=== PATIENT | female | born 2000 | race Two or more races ===

== ENCOUNTER 2019-01-28 05:50 | Inpatient (IN) | payer SELFPAY ==
[~2019-01-28] VITALS: Ht 154.9 cm; Wt 69.4 kg
[2019-01-28 07:13] LABS: Basophils # (auto) 0.1 uL; Basophils % (auto) 0.9 % (0.0-2.0); Eosinophils # (auto) 0.1 uL; Eosinophils % (auto) 0.6 % (0.0-7.0); Hematocrit 44.4 % (36.0-46.0); Hemoglobin 15.1 g/dL (12.2-16.2); Lymphocytes # (auto) 1.9 uL; Lymphocytes % (auto) 20.2 % (10.0-50.0); Mean Corpuscular Hemoglobin 30.4 pg (28.0-32.0); Mean Corpuscular Volume 89.4 fL (80.0-100.0); Monocytes # (auto) 0.6 uL; Neutrophils # (auto) 6.9 uL; Neutrophils % (auto) 72.3 % (37.0-80.0); Nucleated Red Blood Cells % 0.1 %; Platelet Count (auto) 301 10^3/uL (140-450); Red Blood Cells 4.97 10^6/uL (4.0-5.20); Red Cell Distribution Width 12.7 % (11.8-14.3); White Blood Cell 9.6 10^3/uL (4.4-10.8)
[2019-01-28 07:25] LABS: INR 0.91 (0.9-1.15); Partial Thromboplastin Time 27.5 sec (23.78-33.04); Prothrombin Time 9.8 sec (9.27-12.13)
[2019-01-28 07:54] LABS: Potassium 3.5 mmol/L (3.5-5.1)
[2019-01-28 08:04] LABS: Albumin 3.4 g/dL (3.4-5.0); BUN/Creatinine Ratio 9.4; Bilirubin, Total 0.5 mg/dL (0.2-1.0); Calcium 8.8 mg/dL (8.5-10.1); Magnesium 2.5 mg/dL (1.6-2.6); Total Protein 7.9 g/dL (6.4-8.2)
[2019-01-28 09:29] LABS: Amphetamine Screen, Urine NEGATIVE (NEGATIVE); Barbiturate Scree,Urine NEGATIVE (NEGATIVE); Benzodiazephine Screen, Urine NEGATIVE (NEGATIVE); Cannabinoid Screen, Urine NEGATIVE (NEGATIVE); Cocaine Screen, Urine NEGATIVE (NEGATIVE); Opiate Scree,Urine NEGATIVE (NEGATIVE); Phencyclidine Screen, Urine NEGATIVE (NEGATIVE)
[2019-01-28] MEDS ORDERED: NITROGLYCERIN 0.4 MG SL TAB SL PRN (10:45)
[2019-01-28] MEDS ORDERED: MORPHINE SULF INJ 2 MG/ML SYRINGE 1ML IV PRN (10:45)
[2019-01-28] MEDS ORDERED: SODIUM CHLORIDE 0.9% 1,000 ML IV SCH (11:15)
[2019-01-28] MEDS ORDERED: ENALAPRIL MALEATE 2.5 MG TAB PO ONE (20:00)
[2019-01-28] MEDS ORDERED: LORazepam 0.5 MG TAB ONE (20:08)
[2019-01-28] MEDS: LORazepam 0.5 MG TAB PO PRN (20:26)
[2019-01-28] MEDS: METOPROLOL TARTRATE 25 MG TAB PO SCH (23:10)
[2019-01-29] MEDS: PANTOPRAZOLE 40 MG/10 ML VIAL IV SCH (09:42)
[2019-01-29] MEDS: ASPirin 81 mg TAB PO SCH (09:42)
[2019-01-29] MEDS: METOPROLOL TARTRATE 25 MG TAB PO SCH ×2 (09:43→21:27)
[2019-01-29] MEDS: ENALAPRIL MALEATE 2.5 MG TAB PO SCH (09:43)
[2019-01-29] MEDS ORDERED: ANGIOMAX 250 MG VIAL IV ONE (10:14)
[2019-01-29] MEDS ORDERED: ATROPINE SULFATE 1 MG/1 ML VIAL ONE (10:14)
[2019-01-29] MEDS ORDERED: fentaNYL CITRATE 100 MCG/2 ML VL ONE (10:15)
[2019-01-29] MEDS ORDERED: MIDAZOLAM HCL 1MG/1ML-2 ML VIAL ONE (10:15)
[2019-01-29] MEDS ORDERED: SODIUM CHL 0.9% 0 ML ONE (10:15)
[2019-01-29] MEDS ORDERED: EPINEPHrine HCL 1 MG/10 ML SYRG ONE (10:15)
[2019-01-29] MEDS ORDERED: IODIXANOL 320MG/ML 100ML BTL IV ONE (10:22)
[2019-01-29] MEDS ORDERED: LIDOCAINE 2%HCL (LOCAL ANESTH.) INJ 20ML MDV ONE (10:22)
[2019-01-29] MEDS ORDERED: IOHEXOL 350 MG/ML 100ML IJ ONE (10:31)
[2019-01-29] MEDS ORDERED: SODIUM CHLORIDE 0.9% 1,000 ML IV SCH (11:23)
--- NOTE | 2019-01-29 14:50 | NUR ---
Report received from Julia FIORE Wanigan Clerk. KATIE BILL brought to bed via wheelchair following Left Heart Catheterization, on athletic monitor and portable oxygen. Patient transferred to unit bed, connected to conveyor monitor #40. Patient tolerated room air O2 sat at 97%. With right groin Angioseal dry and intact. Catheterization site assessed for any bleeding, redness or swelling. Pedal pulses on affected leg assessed for positive tissue perfusion. Patient instructed on need to notify staff immediately if any pain, burning or wetness to site, and any lower back pain. Patient educated on new cardiac medications. All questions and concerns addressed, patient verbalized understanding of all education and instruction. See notes for any further.
[2019-01-29 15:00] VITALS: BP 96/53
--- NOTE | 2019-01-29 15:03 | NUR ---
chaperoned Dr. Maradiaga into pts room
[2019-01-29 16:55] LABS: Cholesterol 124 mg/dL (< 200); Triglycerides 87 mg/dL (< 150)
[2019-01-29 16:57] LABS: HDL Cholesterol 43 mg/dL (40-59); LDL Cholesterol 76 mg/dL (< 100)
[2019-01-29 17:22] VITALS: BP 96/53
--- NOTE | 2019-01-29 20:21 | NUR ---
HOSPITALIST PAGED PATIENT REPORTING HEADACHE RATED 3/10, NO PRN PAIN MEDICATION ORDERED.
[2019-01-29] MEDS ORDERED: ACETAMINOPHEN 325 MG TAB PO PRN (21:00)
[2019-01-29] MEDS: LORazepam 0.5 MG TAB PO PRN (21:26)
[2019-01-29 22:00] VITALS: BP 100/64
[2019-01-30 05:30] VITALS: BP 94/48
--- NOTE | 2019-01-30 06:51 | NUR ---
DRESSING REMAINS C/D/I TO RIGHT GROIN. NO S/S OF BLEEDING/HEMATOMA FORMATION NOTED. PEDAL PULSES/ SENSATION INTACT BILATERALLY.
[2019-01-30 09:02] VITALS: BP 108/71
[2019-01-30] MEDS: ENALAPRIL MALEATE 2.5 MG TAB PO SCH (10:00)
[2019-01-30] MEDS: PANTOPRAZOLE 40 MG/10 ML VIAL IV SCH (10:08)
[2019-01-30] MEDS: ASPirin 81 mg TAB PO SCH (10:09)
[2019-01-30] MEDS: METOPROLOL TARTRATE 25 MG TAB PO SCH ×2 (10:09→21:47)
--- NOTE | 2019-01-30 10:53 | NUR ---
chaperoned Dr. Maradiaga into pts room
--- NOTE | 2019-01-30 11:00 | NUR ---
Patient is for discharge. IV removed on the left antecubital area, pressure dressing applied.
[2019-01-30 12:18] VITALS: BP 98/64
--- NOTE | 2019-01-30 13:15 | NUR ---
Patient complained of tightness on the right groin area site of the LHC. Swelling on the side noted but no bleeding, dressing dry and intact. Paged Dr. Felix. Waiting for call back.
[2019-01-30 13:34] VITALS: BP 108/71
--- NOTE | 2019-01-30 13:45 | NUR ---
Dr. Felix returned call, instructions received. Apply manual pressure for 30miutes on the right groin, remained on bedrest for the next 4 hours and cancelled the discharge today. Dr. Hiren last tomlin. Elida FIORE from laborer drying department will come up and check on the patient.
--- NOTE | 2019-01-30 14:00 | NUR ---
Started applying manual pressure on the right groin area. Positioned patient flat on bed. Will continue care.
--- NOTE | 2019-01-30 14:30 | NUR ---
Manual pressure administration done. Elida FIORE Gas Main And Line Fitter came in, patient is advised. Safeguard applied on the right groin area inflated with 40ml of air to remain for 3 hours. Instructions received to start deflating 5ml of air after 3 hours, do it repeatedly every after 15minutes. Once all air is deflated, do not remove the safeguard. Keep the safeguard in place until tomorrow. Observe for S/S of bleeding and hematoma.
[2019-01-30 16:46] VITALS: BP 110/62
--- NOTE | 2019-01-30 17:30 | NUR ---
Deflated 5ml of air from safeguard. No bleeding noted. No complaints of pain.
--- NOTE | 2019-01-30 18:00 | NUR ---
Deflated 5ml of air from safeguard. No complaints of pain or tightness on the right groin.
--- NOTE | 2019-01-30 18:30 | NUR ---
Deflated 5ml of air from safeguard, no further swelling noted. No bleeding, no complains of pain or tightness on the site.
--- NOTE | 2019-01-30 19:01 | NUR ---
IV insertion IV access obtained, via clean sterile technique by inserting 22 gauge catheter at left antecubital after on attempt. IV secured properly. No trauma to site. Patient tolerated well.
--- NOTE | 2019-01-30 19:02 | NUR ---
Deflated 5ml of air from safeguard. Right groin looks good. No further swelling, bleeding, pain and tightness on the site.
--- NOTE | 2019-01-30 19:03 | NUR ---
Gave reports to manufacturing shift supervisor RN that total of 20ml of air deflated on the safeguard. Safeguards to remain in place even if all the air is out. Possible removal of the safeguard tomorrow.
--- NOTE | 2019-01-30 20:15 | NUR ---
A&Ox4, resting in bed. Currently with no pain level. Deflated 5 ml of air from safeguard. Right groin asymptomatic. Pedal pulses palpated bilaterally. No further swelling, bleeding, pain, tightness and warmth on the side, Bed locked in lower position, side rails up x2, call light within reach. Skin is intact, no open wounds. Will continue to round.
--- NOTE | 2019-01-30 20:55 | NUR ---
Deflated 5 ml of air from safeguard. Right groin asymptomatic. Pedal pulses palpated bilaterally. No further swelling, bleeding, pain, tightness and warmth on the side
--- NOTE | 2019-01-30 21:25 | NUR ---
Deflated 5 ml of air from safeguard. Right groin asymptomatic. Pedal pulses palpated bilaterally. No further swelling, bleeding, pain, tightness and warmth on the side. CONTINUE TO ROUND AND MONITOR.
[2019-01-30] MEDS: LORazepam 0.5 MG TAB PO PRN (21:46)
--- NOTE | 2019-01-30 21:55 | NUR ---
Deflated 5 ml of air from safeguard. Right groin asymptomatic. Pedal pulses palpated bilaterally. No complaints at this time. continue to monitor site.
[2019-01-30 22:00] VITALS: BP 113/69
--- NOTE | 2019-01-30 22:15 | NUR ---
5ML AIR REMOVED FROM SAFEGUARD. PATIENT DENIES PAIN AT SITE. NO BLEEDING/HEMATOMA FORMATION NOTED. LIGHT ECCHYMOSIS NOTED TO SITE. PEDAL PULSES PALPATED, STRONG BILATERALLY.
--- NOTE | 2019-01-30 22:40 | NUR ---
5ML AIR REMOVED FROM SAFEGUARD. PATIENT DENIES PAIN AT SITE. NO BLEEDING/HEMATOMA FORMATION NOTED. LIGHT ECCHYMOSIS NOTED TO SITE. PEDAL PULSES PALPATED, STRONG BILATERALLY.
--- NOTE | 2019-01-30 23:00 | NUR ---
Right groin asymptomatic. Deflated 5 ml of air from safeguard. Pedal pulses palpated bilaterally. No complaints at this time. continue to monitor site.
--- NOTE | 2019-01-30 23:25 | NUR ---
5ML AIR REMOVED FROM SAFEGUARD. PATIENT DENIES PAIN AT SITE. NO BLEEDING/HEMATOMA FORMATION NOTED. LIGHT ECCHYMOSIS NOTED TO SITE. PEDAL PULSES PALPATED, STRONG BILATERALLY.
--- NOTE | 2019-01-31 03:50 | NUR ---
Deflated 5 ml of air from safeguard. Right groin looks good. Pedal pulses palpated bilaterally. No complaints at this time. continue to monitor site. Addendum: 01/31/19 at 0615 by Ira Martinez RN WRONG TIME, CORRECT TIME IS 2345 SAFEGUARD COMPLETELY DEFLATED FOR A TOTAL OF 60ML OF AIR. NO S/S OF BLEEDING NOTED. SAFEGUARD DRESSING REMAINS IN PLACE PER INSTRUCTIONS.
[2019-01-31 06:00] VITALS: BP 102/58
--- NOTE | 2019-01-31 06:08 | NUR ---
AMBULATION PATIENT AMBULATED TO BATHROOM WITH STANDBY ASSIST. PATIENT DENIES PAIN OR TIGHTNESS TO RIGHT GROIN SITE. NO SWELLING OR BLEEDING NOTED AT SITE. PATIENT RETURNED TO BED WITHOUT INCIDENT. ECCHYMOSIS NOTED UNDER SAFEGUARD SITE PREVIOUSLY NOTED.
--- NOTE | 2019-01-31 08:00 | NUR ---
Opening Shift Note Assumed care of patient, awake and alert. No S/S of distress/SOB or pain. Right groin safeguard intact. No swelling or bleeding noted on the site. Instructed on POC and to call for assist PRN, will continue to monitor for changes Q1hr and PRN.
[2019-01-31 08:30] VITALS: BP 109/57
--- NOTE | 2019-01-31 09:30 | NUR ---
Dr. Buck at bedside, patient is advised. May go home from cardiology standpoint. Safeguard removed on the right groin, applied pressure dressing. Will continue care.
[2019-01-31] MEDS: ASPirin 81 mg TAB PO SCH (09:39)
[2019-01-31] MEDS: METOPROLOL TARTRATE 25 MG TAB PO SCH (09:39)
[2019-01-31] MEDS: PANTOPRAZOLE 40 MG/10 ML VIAL IV SCH (09:40)
[2019-01-31] MEDS: ENALAPRIL MALEATE 2.5 MG TAB PO SCH (09:43)
--- NOTE | 2019-01-31 10:14 | NUR ---
CHAPERONED DR. SANTIAGO INTO PTS ROOM
[2019-01-31 10:51] VITALS: BP 109/59
--- NOTE | 2019-01-31 11:25 | NUR ---
Right groin dressing dry and intact. No swelling on the site, no complaints of pain or tightness. Patient ambulated well around the bed.
--- NOTE | 2019-01-31 11:31 | NUR ---
Discharge instructions given as ordered. Encourage to follow up with PMD as instructed. No insurance and no PCP yet, Urgent care coupon and continuum of care transition manager card given. Informations on how to apply for [facility] and contact information for [facility] given. Office of Dr. Felix-septic technician will call patient on next appointment. All questions and concerns addressed. Patient verbalized understanding. Medication reconciliation form completed and copy given to patient. IV removed with catheter intact, pressure dressing applied. Telemetry unit returned to [facility]. Patient taken to vehicle via wheelchair with all personal belongings, accompanied by staff and family member. No distress noted at time of departure.
== END 2019-01-31 11:31 | disposition home or self-care (01) | DRG 282 ==
LOC: ER 05:50 → TELE 11:44 → TELE-CENTR 01-29 15:44
PROVIDERS: ADMIT Nurse Practitioner Acute Care; ATTEND Family Medicine
PROC: 4A023N7 Measurement of Cardiac Sampling and Pressure, Left Heart, Percutaneous Approach (ICD-10-PCS; principal; 2019-01-29)
PROC: B2151ZZ Fluoroscopy of Left Heart using Low Osmolar Contrast (ICD-10-PCS; 2019-01-29)
PROC: B2111ZZ Fluoroscopy of Multiple Coronary Arteries using Low Osmolar Contrast (ICD-10-PCS; 2019-01-29)
DX: I21.4 Non-ST elevation (NSTEMI) myocardial infarction (principal); F12.90 Cannabis use, unspecified, uncomplicated; F41.9 Anxiety disorder, unspecified; I51.4 Myocarditis, unspecified; J45.909 Unspecified asthma, uncomplicated; Z82.49 Family history of ischemic heart disease and other diseases of the circulatory system
CPT/HCPCS: 36415; 71275; 76881; 80053; 80061; 80307; 81025; 83735; 84443; 84484; 85025; 85379; 85610; 85730; 93005; 93306; A6257; C9113; G0378; J0461; J2250; Q9967